=== PATIENT | male | born 1975 | race Two or more races ===

== ENCOUNTER 2017-07-27 09:14 | Emergency (ER) | payer SELFPAY ==
[~2017-07-27] VITALS: Ht 167.6 cm; Wt 83.9 kg
--- NOTE | 2017-07-27 09:25 | NUR ---
[id number] FROM [address] FOR FACIAL ABRASION. WAS FOUND ON GROUND. PD WAS CALLED IN THE SCENE. NAD VSS RR EVEN AND UNLABORED. PENDING ER MD SIMPSON
[2017-07-27] MEDS ORDERED: TDAP [DIPH/PERTUSSIS/TET] 0.5 ML VIAL IM ONE (09:50)
[2017-07-27] MEDS: TDAP [DIPH/PERTUSSIS/TET] 0.5 ML VIAL IM ONE (09:53)
--- NOTE | 2017-07-27 10:55 | NUR ---
WOUND CARE AT BEDSIDE BY CHUCK CASE
[2017-07-27] MEDS: BACI/NEOM/POLY B OINT PKT 1 UDPKT PACKET TP ONE (11:06)
--- NOTE | 2017-07-27 11:52 | NUR ---
Patient discharged to home in stable condition. Written and verbal after care instructions given. Patient verbalizes understanding of instruction.
--- NOTE | 2017-07-27 11:52 | NUR ---
FAMILY VERBALIZED UNDERSTANDING WELL
[2017-07-27 11:53] VITALS: BP 132/74
--- NOTE | 2017-07-27 11:54 | NUR ---
LEFT IN STABLE CONDITION, AMBULATORY IN STEADY GAIT
== END 2017-07-27 11:54 | disposition home or self-care (01) ==
LOC: ER 09:17
DX: S02.81XA Fracture of other specified skull and facial bones, right side, initial encounter for closed fracture (principal); S02.2XXA Fracture of nasal bones, initial encounter for closed fracture; Z60.2 Problems related to living alone; F31.9 Bipolar disorder, unspecified; W10.1XXA Fall (on)(from) sidewalk curb, initial encounter; Y99.8 Other external cause status; Y93.89 Activity, other specified; Y92.89 Other specified places as the place of occurrence of the external cause
CPT/HCPCS: 70450-TC; 70486-TC; 90715; A4606; A6403; Z7610

== ENCOUNTER 2017-08-07 13:22 | Emergency (ER) | payer OTHER ==
[~2017-08-07] VITALS: Ht 170.2 cm; Wt 83.9 kg
[2017-08-07] MEDS ORDERED: LORAZEPAM INJ 2 MG/ML VIAL ONE (13:24)
--- NOTE | 2017-08-07 13:25 | NUR ---
VERBAL ORDER 2MG ATIVAN
--- NOTE | 2017-08-07 13:25 | NUR ---
PT WAS TRANSFERRED FROM [facility] TO [facility] AND PT STARTED SEIZING. MD OROPEZA.
--- NOTE | 2017-08-07 13:47 | NUR ---
ATIVAN 2 MG IM RT DELTOID IV STARTED 20G RT FA LABS DRAWN SENT TO LAB VS AWAITING EVALUATION BY ER PROVIDER.
[2017-08-07] MEDS ORDERED: LEVETIRACETAM (500MG) 1,000 MG in IV NS 0.9% 100 ML IV SCH (14:30)
--- NOTE | 2017-08-07 16:27 | NUR ---
FAMILY AT BEDSIDE PT. VERBALIZED UNDERSTANDING OF AFTERCARE INSTRUCTIONS.IV removed. Catheter intact and site benign. Pressure and 4x4 applied to site. No bleeding noted.Patient discharged to home in stable condition. Written and verbal after care instructions given. Patient verbalizes understanding of instruction.
[2017-08-07 16:28] VITALS: BP 127/80
[2017-08-08] MEDS ORDERED: LORAZEPAM INJ 2 MG/ML VIAL IM ONE (11:30)
== END 2017-08-07 16:29 | disposition home or self-care (01) ==
LOC: ER 13:26
DX: G40.909 Epilepsy, unspecified, not intractable, without status epilepticus (principal); Z91.14 Patient's other noncompliance with medication regimen; F31.9 Bipolar disorder, unspecified; F15.10 Other stimulant abuse, uncomplicated; Z60.2 Problems related to living alone
CPT/HCPCS: 82962; 96374; 99284; A4606; J1953; J2060; J7030; Z7610

== ENCOUNTER 2021-03-14 08:52 | Emergency (ER) | payer OTHER ==
[~2021-03-14] VITALS: Ht 167.6 cm; Wt 81.6 kg
--- NOTE | 2021-03-14 09:22 | NUR ---
SEEN AND EXAMINED BY .
--- NOTE | 2021-03-14 11:26 | NUR ---
PT IS MEDICALLY CLEARED FOR DISCHARGE. PROVIDED W/ HOMELESS REFFERALS BUT REFUSED TO SIGN. INSISTING THAT HE NEEDS A BED AND A PLACE TO REST. STABLE VITALS.
[2021-03-14 11:28] VITALS: BP 130/80
== END 2021-03-14 11:30 | disposition home or self-care (01) ==
LOC: ER 08:56
DX: T69.9XXA Effect of reduced temperature, unspecified, initial encounter (principal); Z59.00 Homelessness unspecified; F20.9 Schizophrenia, unspecified; F31.9 Bipolar disorder, unspecified; Z60.2 Problems related to living alone

== ENCOUNTER → 2021-03-15 | Emergency (ER) | payer MEDICAID, OTHER ==
[~2021-03-15] VITALS: Ht 167.6 cm; Wt 63.5 kg
[~2021-03-15] MED LIST: IBUPROFEN 400 MG TABLET ONE; IBUPROFEN 400 MG TABLET PO ONE
[2021-03-15 22:20] VITALS: BP 121/78
--- NOTE | 2021-03-15 22:20 | NUR ---
PT BIBSELF C/O RT RIB PAIN AND LEFT INGUINAL HERNIA PAIN SINCE YESTERDAY. PT IS AAO X 4, NO SIGN OF ACUTE DISTRESS, BREATHING EVEN AND UNLABORED. PT SEEN AND EXAMINED BY DR MEJIA. PT ATTACHED TO MONITOR AND PULSE OX. WILL CONTINUE TO MONITOR AND CARRY OUT MD ORDERS.
--- NOTE | 2021-03-15 23:15 | NUR ---
Patient discharged to home in stable condition. Written and verbal after care instructions given. Patient verbalizes understanding of instruction. Patient ambulatory with a steady gait
== END | disposition home or self-care (01) ==
LOC: ER 22:15
DX: K40.90 Unilateral inguinal hernia, without obstruction or gangrene, not specified as recurrent (principal); Z76.5 Malingerer [conscious simulation]; Z59.00 Homelessness unspecified; F20.9 Schizophrenia, unspecified; F31.9 Bipolar disorder, unspecified

== ENCOUNTER 2021-03-17 12:35 | Emergency (ER) | payer OTHER ==
[~2021-03-17] VITALS: Ht 167.6 cm; Wt 81.6 kg
--- NOTE | 2021-03-17 12:47 | NUR ---
PT BIBSELF C/O UPPER ABDOMINAL PAIN X 2 WEEKS. PT A/OX4. TOLERATING R/A WELL WITH NO SOB
--- NOTE | 2021-03-17 13:11 | NUR ---
Patient discharged to home in stable condition. Written and verbal after care instructions given. Patient verbalizes understanding of instruction. PT ambulatory with a steady gait. HOMELESS WAIVER SIGNED
[2021-03-17 13:17] VITALS: BP 133/84
== END 2021-03-17 13:19 | disposition home or self-care (01) ==
LOC: ER 12:37
DX: K40.90 Unilateral inguinal hernia, without obstruction or gangrene, not specified as recurrent (principal); F20.9 Schizophrenia, unspecified; F31.9 Bipolar disorder, unspecified; Z60.2 Problems related to living alone